=== PATIENT | female | born 1975 | race Caucasian/White ===

== ENCOUNTER 2021-08-02 09:48 | Outpatient (REF) | payer SELFPAY ==
[2021-08-02 10:35] LABS: Binax Internal Control QC Valid; Binax Lot number: 9864; Binax Now Covid-19 Ag Negative (Negative)
== END 2021-08-02 09:49 | disposition home or self-care (01) ==
LOC: HO.LAB 09:48
PROVIDERS: Visit Provider Internal Medicine
DX: Z20.822 Contact with and (suspected) exposure to COVID-19 (principal)
CPT/HCPCS: 36415; C9803